=== PATIENT | female | born 1990 | race Caucasian/White ===

== ENCOUNTER 2017-05-08 11:21 | Emergency (ER) | payer OTHER ==
[~2017-05-08] VITALS: Ht 170.2 cm; Wt 63.0 kg
== END 2017-05-08 20:51 | disposition home or self-care (01) ==
LOC: ER 11:21
DX: N93.8 Other specified abnormal uterine and vaginal bleeding (principal); N83.201 Unspecified ovarian cyst, right side

== ENCOUNTER 2017-06-25 12:59 | Emergency (ER) | payer OTHER ==
[~2017-06-25] VITALS: Ht 165.1 cm; Wt 68.0 kg
== END 2017-06-25 17:24 | disposition home or self-care (01) ==
LOC: ER 12:59
DX: T81.89XA Other complications of procedures, not elsewhere classified, initial encounter (principal)

== ENCOUNTER 2017-08-02 23:59 | Emergency (ER) | payer OTHER ==
[~2017-08-02] VITALS: Ht 165.1 cm; Wt 68.0 kg
[2017-08-03] MEDS ORDERED: MECLIZINE HCL25 M1 PO (04:40)
[2017-08-03] MEDS ORDERED: PHENAGIL TABLE1 EACH PO (04:40)
[2017-08-03] MEDS ORDERED: FLONASE16 GM NASAL (04:40)
== END 2017-08-03 05:05 | disposition home or self-care (01) ==
LOC: ER 23:59
DX: H81.43 Vertigo of central origin, bilateral (principal); J32.8 Other chronic sinusitis

== ENCOUNTER → 2018-03-23 | Emergency (ER) | payer OTHER ==
[~2018-03-23] VITALS: Ht 165.1 cm; Wt 68.0 kg
[~2018-03-23] MED LIST: BENADRYL50 MG PO; FLONASE16 GM NASAL; MECLIZINE HCL25 M1 PO; MEDROLPACK PO; PHENAGIL TABLE1 EACH PO
== END | disposition home or self-care (01) ==
LOC: ER 20:51
DX: L50.8 Other urticaria (principal)